=== PATIENT | female | born 1955 | race Caucasian/White ===

== ENCOUNTER 2017-03-22 17:16 | Emergency (ER) | payer BC ==
[2017-03-22 17:24] VITALS: BP 141/78; PULSE 68; TEMP 98; BMI 27.1
--- NOTE | 2017-03-22 18:13 | PDOC ---
History of Present Illness - General Chief Complaint: Eye Problem Stated Complaint: eye irritation Time Seen by Provider: 03/22/17 17:53 - History of Present Illness Initial Comments: 03/22/17 18:08 CHIEF COMPLAINT: possible exposure to bleach HISTORY OF PRESENT ILLNESS: 61 yo F with no PMH presents to [facility] s/p possible eye exposure to bleach. Patient reports that she poured bleach into a toilet bowl "and it splashed up on my face and I just wanted to make sure my eye was ok." Patient reports irrigating eye "for a really long time" and denies any current burning, pain, change in vision, or any other symptoms. PAST MEDICAL HISTORY: Denies past medical history FAMILY HISTORY: Denies SOCIAL HISTORY: Denies tobacco, alcohol, illicit drug use. SURGICAL HISTORY: Denies ALLERGIES: No known drug allergies REVIEW OF SYSTEMS General/Constitutional: Denies fever or chills. Denies weakness, weight change. HEENT: Denies change in vision, burning, or pain to eye. Cardiovascular: Denies chest pain or shortness of breath. Gastrointestinal: Denies nausea, vomiting, diarrhea. Genitourinary: Denies dysuria, frequency, or change in urination. Musculoskeletal: Denies joint or muscle swelling or pain. Denies neck or back pain. Skin and breasts: Denies rash or easy bruising. PHYSICAL EXAM General Appearance: Well-appearing, appropriately dressed. No apparent distress. HEENT: EOMI, PERRLA. No conjunctival pallor. No photophobia, scleral icterus. Respiratory/Chest: Lungs CTAB. Cardiovascular: RRR. S1, S2. Musculoskeletal/Extremities: Normal inspection. FROM of all extremities, normal capillary refill. Pelvis Stable. No CVA tenderness. No tenderness to extremities, pedal edema, swelling, erythema or deformity. Integumentary: Appropriate color, dry, warm. 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 Fully oriented, alert. Appropriate mood/affect. Motor strength 5/5. No appreciable EOM palsy, facial droop or sensory deficit. Past History - Past Medical History Allergies/Adverse Reactions: Allergies Allergy/AdvReac Type Severity Reaction Status Date / Time No Known Allergies Allergy Verified 03/22/17 17:24 Home Medications: Ambulatory Orders Erythromycin 0.5% Eye Ointment [Erythromycin 0.5% Eye Ointment -] 1 applic OD BID #1 tube 03/22/17 Other medical history: denies - Suicide/Smoking/Psychosocial Hx Smoking History: Never smoked Information on smoking cessation initiated: No Hx Alcohol Use: No Drug/Substance Use Hx: No Substance Use Type: None *Physical Exam - Vital Signs Last Vital Signs Temp Pulse Resp BP Pulse Ox 98 F 68 18 141/78 98 03/22/17 17:21 03/22/17 17:21 03/22/17 17:21 03/22/17 17:21 03/22/17 17:21 Medical Decision Making - Medical Decision Making 03/22/17 18:11 61 yo F with no PMH presents to [facility] s/p possible eye exposure to bleach. Flourescein stain, eye exam performed. Exam unremarkable, no corneal abrasion visualized. -erythromycin eye ointment rx sent for prophylaxis Advised patient to continue monitoring eye for any burning, blurry vision, change in vision, or pain and to f/u with ophthalmology. Patient verbalized understanding and agrees to plan. 03/22/17 18:54 *DC/Admit/Observation/Transfer Diagnosis at time of Disposition: Accidental exposure to bleach - Discharge Dispostion Admit: No - Prescriptions Prescriptions: Erythromycin 0.5% Eye Ointment [Erythromycin 0.5% Eye Ointment -] 1 applic OD BID #1 tube - Referrals Referrals: Jase Conti MD [Primary Care Provider] - Jason Tsai MD [Staff Physician] - - Patient Instructions Printed Discharge Instructions: DI for Chemical Eye Burn Additional Instructions: Please use medication as prescribed. Follow up with your opthalmologist if you develop ANY burning, pain, or change in vision to your eye.
== END 2017-03-22 18:29 | disposition home or self-care (01) ==
LOC: JERFT 17:16
DX: Z77.018 Contact with and (suspected) exposure to other hazardous metals (principal)
CPT/HCPCS: 99281-25

== ENCOUNTER 2020-11-06 04:55 | Day surgery (SDC) | payer OTHER, BC ==
[2020-11-03 13:30] VITALS: BMI 24.9
[2020-11-06 08:48] VITALS: TEMP 97.7
[2020-11-06 09:39] VITALS: BP 115/59; PULSE 59
== END 2020-11-06 10:00 | disposition home or self-care (01) ==
LOC: JASU-ENDO 04:55
PROVIDERS: ATTEND Internal Medicine Gastroenterology
PROC: 0DBN8ZX Excision of Sigmoid Colon, Via Natural or Artificial Opening Endoscopic, Diagnostic (ICD-10-PCS; 2020-11-06)
PROC: 0DBP8ZX Excision of Rectum, Via Natural or Artificial Opening Endoscopic, Diagnostic (ICD-10-PCS; principal; 2020-11-06 08:00)
DX: Z12.11 Encounter for screening for malignant neoplasm of colon (principal); D12.5 Benign neoplasm of sigmoid colon; K62.1 Rectal polyp; K64.8 Other hemorrhoids; K57.30 Diverticulosis of large intestine without perforation or abscess without bleeding; Z86.010 Personal history of colon polyps
CPT/HCPCS: 88305-TC